=== PATIENT | female | born 1945 | race Caucasian/White ===

== ENCOUNTER 2017-10-25 11:52 | Observation (INO) | payer MEDICARE, BC ==
[2017-10-25] MEDS ORDERED: Morphine 2 MG/ML Syringe IVPUSH ONE (12:23)
--- NOTE | 2017-10-25 12:28 | EDM.PDOC ---
ED HPI GENERAL MEDICAL PROBLEM - General Chief Complaint: General Stated Complaint: Fell: R shoulder, low back, R knee Time Seen by Provider: 10/25/17 12:15 Source of Information: Reports: Patient, EMS History Limitations: Reports: No Limitations - History of Present Illness INITIAL COMMENTS - FREE TEXT/NARRATIVE: Patient is s/p right TKR 10/23/17 @ [facility], discharged yesterday to home, lives alone. Fell off shower stool (stool gave way), was unable to get self up. Complains of right scapula/back pain, lower back pain and right knee pain (no worse than after surgery). Denies LOC, patient did strike her head though and complains of headache. No chest pain, shortness of breath or abdominal pain. Onset: Today Duration: Hour(s): (1) Location: Reports: Head, Back Quality: Reports: Ache Severity: Moderate - Related Data Allergies Allergy/AdvReac Type Severity Reaction Status Date / Time amoxicillin Allergy Anaphylactic Verified 10/25/17 12:16 Shock Home Meds: Home Meds Aspirin 81 mg PO ASDIRECTED 10/25/17 [History] Biotin 5,000 mcg PO ASDIRECTED 10/25/17 [History] Celecoxib 200 mg PO BID 10/25/17 [History] ClonazePAM [KlonoPIN] 0.5 mg PO BEDTIME 10/25/17 [History] Ferrous Gluconate 324 mg PO ASDIRECTED 10/25/17 [History] Folic Acid 1 mg PO DAILY 10/25/17 [History] Gabapentin [Neurontin] 300 mg PO DAILY 10/25/17 [History] Hydroxychloroquine [Plaquenil] 200 mg PO BID 10/25/17 [History] Methotrexate 7.5 mg PO Q7D 10/25/17 [History] Tamoxifen [Nolvadex] 20 mg PO DAILY 10/25/17 [History] Trimethoprim 100 mg PO DAILY 10/25/17 [History] Venlafaxine HCl [Venlafaxine ER] 75 mg PO DAILY 10/25/17 [History] Venlafaxine HCl [Venlafaxine ER] 150 mg PO DAILY 10/25/17 [History] Zonisamide [Zonegran] 100 mg PO BID 10/25/17 [History] Past Medical History Cardiovascular History: Reports: Other (See Below) (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) Musculoskeletal History: Reports: Arthritis, Back Pain, Chronic Neurological History: Reports: Neuropathy, Peripheral Psychiatric History: Reports: Anxiety, Depression - Past Surgical History Musculoskeletal Surgical History: Reports: Knee Replacement (right 10/23/17), Other (See Below) (back surgery) Social & Family History - Tobacco Use Smoking Status *Q: Former Smoker Tobacco Use Within Last Twelve Months: No - Alcohol Use Alcohol Use in Last Twelve Months: No ED ROS GENERAL - Review of Systems Review Of Systems: See Below Constitutional: Reports: No Symptoms HEENT: Reports: No Symptoms Respiratory: Reports: No Symptoms Cardiovascular: Reports: No Symptoms Endocrine: Reports: No Symptoms GI/Abdominal: Reports: No Symptoms : Reports: No Symptoms Musculoskeletal: Reports: Back Pain, Other (right knee pain) Skin: Reports: No Symptoms Neurological: Reports: Headache Psychiatric: Reports: No Symptoms Hematologic/Lymphatic: Reports: No Symptoms Immunologic: Reports: No Symptoms ED EXAM, GENERAL - Physical Exam Exam: See Below Exam Limited By: No Limitations General Appearance: Alert, WD/WN, No Apparent Distress Eye Exam: Bilateral Eye: PERRL Nose: Normal Inspection Throat/Mouth: No Airway Compromise Head: Atraumatic, Normocephalic Neck: Normal Inspection, Non-Tender, Other (+distracting injury) Respiratory/Chest: No Respiratory Distress, Lungs Clear, Normal Breath Sounds Cardiovascular: Normal Peripheral Pulses, Regular Rate, Rhythm, Systolic Murmur (2/6) GI/Abdominal: Soft, Non-Tender, No Distention Back Exam: Other (mild lumbar spinous tenderness; mild right midback tenderness) Extremities: Other (mild tenderness, moderate swelling and ecchymosis to right knee) Neurological: Alert, Oriented, Normal Cognition, No Motor/Sensory Deficits Psychiatric: Normal Affect, Normal Mood Skin Exam: Intact EKG INTERPRETATION EKG Date: 10/25/17 Time: 12:35 Rhythm: NSR Rate (Beats/Min): 95 EKG Interpretation Comments: No acute ischemia, no ectopy Course - Vital Signs Text/Narrative:: Pain has improved after Morphine. Dr. Cherry agrees to admit patient for observation Last Recorded V/S: Last Vital Signs Temp 36.9 C 10/25/17 11:55 Pulse 94 10/25/17 11:55 Resp 16 10/25/17 11:55 BP 153/73 H 10/25/17 11:55 Pulse Ox 99 10/25/17 11:55 - Orders/Labs/Meds Orders: Active Orders 24 hr Category Date Time Status Cervical Spine wo Cont [CT] Stat Exams 10/25/17 12:21 Taken Chest wo Cont [CT] Stat Exams 10/25/17 12:24 Taken Head wo Cont [CT] Stat Exams 10/25/17 12:21 Taken Lumbar Spine wo Cont [CT] Stat Exams 10/25/17 12:21 Taken UA W/MICROSCOPIC [URIN] Stat Lab 10/25/17 12:20 Ordered Sodium Chloride 0.9% [Normal Saline] 1,000 ml Med 10/25/17 12:30 Active IV ASDIRECTED EKG 12 Lead [EK] Routine Ther 10/25/17 12:20 Ordered Medication Orders Sodium Chloride (Normal Saline) 1,000 mls @ 100 mls/hr IV ASDIRECTED MELIA Last Admin: 10/25/17 13:45 Dose: 100 mls/hr Labs: Laboratory Tests 10/25/17 10/25/17 Range/Units 12:30 12:30 WBC 9.8 (4.5-12.0) X10-3/uL RBC 3.32 (3.23-5.20) x10(6)uL Hgb 10.7 L (11.5-15.5) g/dL Hct 31.9 (30.0-51.3) % MCV 96.0 (80-96) fL MCH 32.2 (27.7-33.6) pg MCHC 33.6 (32.2-35.4) g/dL RDW 14.2 (11.5-15.5) % Plt Count 179 (125-369) X10(3)uL MPV 8.1 (7.4-10.4) fL Add Manual Diff Yes Neutrophils % (Manual) 83 H (46-82) % Lymphocytes % (Manual) 8 L (13-37) % Monocytes % (Manual) 9 (4-12) % Sodium 136 (135-145) mmol/L Potassium 4.1 (3.5-5.3) mmol/L Chloride 103 (100-110) mmol/L Carbon Dioxide 25 (21-32) mmol/L BUN 15 (7-18) mg/dL Creatinine 1.0 (0.55-1.02) mg/dL Est Cr Clr Drug Dosing TNP Estimated GFR (MDRD) 54 L (>60) BUN/Creatinine Ratio 15.0 (9-20) Glucose 113 (80-116) mg/dL Calcium 8.7 (8.6-10.2) mg/dL Meds: Medications Generic Name Dose Route Start Last Admin Trade Name Karely PRN Reason Stop Dose Admin Sodium Chloride 1,000 mls @ 100 mls/hr 10/25/17 12:30 10/25/17 13:45 Normal Saline IV 100 mls/hr ASDIRECTED MELIA Administration Discontinued Medications Generic Name Dose Route Start Last Admin Trade Name Karely PRN Reason Stop Dose Admin Morphine Sulfate 2 mg 10/25/17 13:45 10/25/17 13:43 Morphine IVPUSH 10/25/17 13:46 2 mg ONETIME ONE Administration - Radiology Interpretation Free Text/Narrative:: CT Head: NAD CT C-spine: NAD CT Chest: NAD CT L-spine: NAD Departure - Departure Time of Disposition: 14:24 Disposition: Refer to Observation Condition: Fair Clinical Impression: Back contusion - Discharge Information Referrals: Ramon Enriquez MD [Primary Care Provider] - Forms: ED Department Discharge - My Orders Last 24 Hours: My Active Orders 10/25/17 12:20 UA W/MICROSCOPIC [URIN] Stat EKG 12 Lead [EK] Routine 10/25/17 12:21 Cervical Spine wo Cont [CT] Stat Head wo Cont [CT] Stat Lumbar Spine wo Cont [CT] Stat 10/25/17 12:24 Chest wo Cont [CT] Stat 10/25/17 12:30 Sodium Chloride 0.9% [Normal Saline] 1,000 ml IV ASDIRECTED - Assessment/Plan Last 24 Hours: My Active Orders 10/25/17 12:20 UA W/MICROSCOPIC [URIN] Stat EKG 12 Lead [EK] Routine 10/25/17 12:21 Cervical Spine wo Cont [CT] Stat Head wo Cont [CT] Stat Lumbar Spine wo Cont [CT] Stat 10/25/17 12:24 Chest wo Cont [CT] Stat 10/25/17 12:30 Sodium Chloride 0.9% [Normal Saline] 1,000 ml IV ASDIRECTED
[2017-10-25] MEDS ORDERED: Sodium Chloride 0.9% 1,000 ML IV SCH (12:30)
[2017-10-25] MEDS ORDERED: Morphine 10 MG/ML Syringe IVPUSH ONE (13:45)
--- NOTE | 2017-10-25 14:46 | CT ---
INDICATION: Trauma, fell, hit back of head, no loss of consciousness. CT HEAD WITHOUT CONTRAST: Serial contiguous 2.5 and 5 mm sections were obtained through the brain without contrast 10/25/2017 - no comparisons. Total exam DLP = 950.31 mGy-cm. Calcifications are noted in the vertebral arteries and the internal carotid arteries. There is some thickening of the lining of the right sphenoidal air cell. Paranasal sinuses were otherwise unremarkable. The mastoid air cells also appeared to be well-aerated. No cranial abnormality was identified - no cranial fracture site was seen. There is suggestion of a small right posterior occipital scalp hematoma - correlate clinically. No other soft tissue swelling was suggested. No underlying fracture site was identified. No shift of midline structures was seen. The ventricles are somewhat prominent , compatible with a mild degree of central atrophy. No bleeding site or hematoma was identified. No definite abnormal areas of density were identified. Orbits were unremarkable. IMPRESSION: 1. No definite acute intracranial abnormality. 2. Cerebrovascular disease. 3. Central atrophy. 4. Thickening of the lining of the right sphenoidal air cell of questionable significance. 5. Suggestion of a small scalp hematoma right posterior occipital area. Report was called to Dr. Greenberg on 10/25/2017 at 1407 hours. [facility]
--- NOTE | 2017-10-25 14:57 | CT ---
INDICATION: Fall, right rib and scapular pain. CT CHEST WITHOUT CONTRAST: Spiral 2.5 mm axial sections were obtained through the chest without contrast 10/25/2017 and were compared with 06/16/2014. Sagittal and coronal reconstructions were obtained. Total exam DLP = 588.83 mGy-cm. There are some minimal fibrotic changes again noted at the right middle lobe and right lower lobe with no active infiltrate, effusion, contusion, or pneumothorax suggested. No definite mediastinal mass is identified. Mediastinal lymphadenopathy is noted of mild degree, which is nonspecific, mostly at the aortopulmonary window. Calcifications are noted at the coronary arteries and in the aorta, seen previously. A tiny fixed hiatal hernia is suggested. A total shoulder arthroplasty is noted on the right. Degenerative changes are noted at the AC joint. A definite rib fracture or scapular fracture was not identified. Two fusions with plates and screws are noted in the cervical spine. Hypertrophic degenerative changes are noted in the mid to lower thoracic spine with degenerative disk disease at several mid to lower thoracic levels. A definite acute fracture site was not identified. The hypertrophic changes appear to be stable, compared with 2014. There are not bridging disk spaces anteriorly. Degenerative disk disease may be slightly progressive, compared with the previous study. No definite acute thoracic spine fracture is identified. Degenerative changes are noted at the glenohumeral joint and AC joint on the left. No acute change is noted, compared with CT of the chest from 06/16/2014. IMPRESSION: 1. No finding to suggest an acute intrathoracic or thoracic abnormality. 2. Mild pulmonary fibrosis, mostly on the right. 3. ASD. 4. Postsurgical changes cervical spine with fusions times two. 5. Degenerative changes and disk disease thoracic spine - no acute fractures identified. 6. No definite rib fractures or scapular fractures identified. Report was called to Dr. Greenberg on 10/25/2017 at 1407 hours. [facility]
[2017-10-25] MEDS ORDERED: Morphine 10 MG/ML Syringe IVPUSH PRN (14:58)
--- NOTE | 2017-10-25 15:03 | CT ---
INDICATION: Fell posteriorly. CT CERVICAL SPINE: Spiral 2.5 mm axial sections were obtained through the cervical spine with sagittal and coronal reconstructions, 10/25/2017. No comparisons were available. Total exam DLP = 528.95 mGy-cm. There are two fusions noted in the cervical spine with plates anteriorly and multiple screws. The cranial fusion is at C3-4-5 with 6 screws and appears intact. Disk spacers are noted in place. The second fusion is at C7-T1 with [address], and at both of these fusions, the plates and screws appear to be intact, as are the fusions. Decreased disk space is seen at the C4-5, C5-6 levels with hypertrophic spurring at those levels. A definite fracture or dislocation was not identified of an acute nature. Hypertrophic spurring does cause narrowing of the cervical canal at the C4-5 level especially. Prevertebral space appeared normal. Degenerative changes are noted at the atlantoodontoid joint with the atlas and axis appearing intact - odontoid appeared intact. IMPRESSION: Degenerative changes, disk disease, and two fusions are noted without evidence of an acute fracture or dislocation identified. Report was called to Dr. Greenberg on 10/25/2017 at 1407 hours. [facility]
--- NOTE | 2017-10-25 15:14 | CT ---
INDICATION: Fell posteriorly. CT LUMBOSACRAL SPINE: Spiral 2.5 mm axial sections were obtained through the lumbosacral spine with sagittal and coronal reconstructions, 10/25/2017 - no comparisons. Total exam DLP = 1,054.68 mGy-cm. Fusion is noted with intact rods and pedicle screws at the L4-5 level. The fusion is intact in appearance. Degenerative disk disease is noted at all levels of the lumbar spine and also at the T12-L1 level with vacuum disk phenomenon at T12 through the L3-4 disk space. There is a mild retrolisthesis at L3-4. It likely is degenerative in nature. Vertebral body heights appear to be fairly well-maintained without a definite acute fracture site or dislocation identified. What appears to be a hemangioma is seen at the L1 vertebral body. This extends into the pedicle on the right and is on the right half of the vertebral body extending across the midline in the vertebral body also. A moderate dextroconcave scoliosis of the upper middle lumbar spine is noted. Moderate degenerative changes are noted at the sacroiliac joints bilaterally, slightly more prominently on the right than left with vacuum joint phenomenon at the sacroiliac joints. Compared with the lumbar spine seen on abdomen CT of 06/16/2014, there is some progression of hypertrophic degenerative changes anteriorly, especially notable at T12-L1. As previously, degenerative changes and disk disease are noted with no acute change suggested. Scoliosis appears similar to the previous examination. Hemangioma at L1 is stable, compared with previous examination. IMPRESSION: Multiple findings as noted above; however, no acute change is noted , compared with 2015 - no acute fracture or dislocation was suggested. L4-5 fusion appears stable. Report was called to Dr. Greenberg on 10/25/2017 at 1407 hours. [facility]ITAL[facility]enn[facility]
[2017-10-25] MEDS: Acetaminophen/HYDROcodone 325-5 MG Tab PO PRN ×2 (15:43→20:18)
--- NOTE | 2017-10-25 20:30 | PCM.HP ---
H&P History of Present Illness - General Date of Service: 10/25/17 Admit Problem/Dx: Admission Diagnosis/Problem Admission Diagnosis/Problem Contusion of back Source of Information: Patient, Old Records History Limitations: Reports: No Limitations - History of Present Illness Initial Comments - Free Text/Narative: 72 yo female who presented with a fall. Was on a stool that slipped,she fell and landed on the buttocks. She was unable to ambulate independently,because of a recent TKA on the right.She had R TKA on Sunday and was discharged home after 1 day. She has rt buttock pain,with no radiation. No fever,chills or sob. She has a h/o HTN,PMR,EUGENIE Lumbar spinal stenosis s/p fusion. Onset of Symptoms: Reports: Today Quality: Reports: Ache Severity: Moderate Right Knee Pain Score (Numeric/FACES): 6 - Related Data Allergies/Adverse Reactions: Allergies Allergy/AdvReac Type Severity Reaction Status Date / Time amoxicillin Allergy Anaphylactic Verified 10/25/17 12:16 Shock Home Medications: Home Meds Aspirin 81 mg PO DAILY 10/25/17 [History] Biotin 5,000 mcg PO DAILY 10/25/17 [History] Celecoxib 200 mg PO BID 10/25/17 [History] ClonazePAM [KlonoPIN] 0.5 mg PO BEDTIME 10/25/17 [History] Ferrous Gluconate 324 mg PO DAILY 10/25/17 [History] Folic Acid 2 mg PO DAILY 10/25/17 [History] Gabapentin [Neurontin] 300 mg PO BID 10/25/17 [History] Hydroxychloroquine [Plaquenil] 200 mg PO BID 10/25/17 [History] Methotrexate 7.5 mg PO Q7D 10/25/17 [History] Tamoxifen [Nolvadex] 20 mg PO BEDTIME 10/25/17 [History] Trimethoprim 100 mg PO DAILY 10/25/17 [History] Venlafaxine HCl [Venlafaxine ER] 75 mg PO DAILY 10/25/17 [History] Venlafaxine HCl [Venlafaxine ER] 150 mg PO DAILY 10/25/17 [History] Zonisamide [Zonegran] 100 mg PO BID 10/25/17 [History] Past Medical History Cardiovascular History: Reports: Other (See Below) Musculoskeletal History: Reports: Arthritis, Back Pain, Chronic Neurological History: Reports: Neuropathy, Peripheral Psychiatric History: Reports: Anxiety, Depression Oncologic (Cancer) History: Reports: Breast Other Oncologic History: lumph removal 3 years ago with radiation following - Past Surgical History Neurological Surgical History: Reports: Spinal Fusion Musculoskeletal Surgical History: Reports: Knee Replacement, Other (See Below) Oncologic Surgical History: Reports: Biopsy of Breast Social & Family History - Family History Family Medical History: Noncontributory - Tobacco Use Smoking Status *Q: Never Smoker Years of Tobacco use: 15 Used Tobacco, but Quit: No Second Hand Smoke Exposure: No - Caffeine Use Caffeine Use: Reports: Other Other Caffeine Use: 10 cans of diet pop/daily - Recreational Drug Use Recreational Drug Use: No H&P Review of Systems - Review of Systems: Review Of Systems: ROS reveals no pertinent complaints other than HPI. Exam - Exam Exam: See Below - Vital Signs Vital Signs: Last Vital Signs Temp 98.4 F 10/25/17 11:55 Pulse 97 10/25/17 15:05 Resp 16 10/25/17 15:05 BP 146/69 H 10/25/17 15:05 Pulse Ox 97 10/25/17 15:05 Weight: 93.185 kg - Exam General: Alert, Oriented, 4 HEENT: PERRLA, Hearing Intact, Mucosa Moist & Powderly, Nares Patent, Normal Nasal Septum, Posterior Pharynx Clear, Conjunctiva Clear, EOMI, EACs Clear, TMs Clear Neck: Supple, Trachea Midline, 2 Lungs: Clear to Auscultation, Normal Respiratory Effort Cardiovascular: Regular Rate, Regular Rhythm GI/Abdominal Exam: Normal Bowel Sounds, Soft, Non-Tender, No Organomegaly, No Distention, No Abnormal Bruit, No Mass, Pelvis Stable (Female) Exam: Deferred Rectal (Female) Exam: Deferred Back Exam: Normal Inspection, Full Range of Motion, NT Extremities: Joint Swelling, Redness Skin: Warm, Dry, Intact Neurological: Cranial Nerves Intact, Reflexes Equal Bilateral Neuro Extensive - Mental Status: Alert, Oriented x3, Normal Mood/Affect, Normal Cognition Neuro Extensive - Motor, Sensory, Reflexes: CN II-XII Intact, Normal Gait, Normal Reflexes Psychiatric: Alert, Normal Affect, Normal Mood - Patient Data Lab Results Last 24 hrs: Laboratory Results - last 24 hr 10/25/17 10/25/17 10/25/17 Range/Units 12:30 12:30 17:30 WBC 9.8 (4.5-12.0) X10-3/uL RBC 3.32 (3.23-5.20) x10(6)uL Hgb 10.7 L (11.5-15.5) g/dL Hct 31.9 (30.0-51.3) % MCV 96.0 (80-96) fL MCH 32.2 (27.7-33.6) pg MCHC 33.6 (32.2-35.4) g/dL RDW 14.2 (11.5-15.5) % Plt Count 179 (125-369) X10(3)uL MPV 8.1 (7.4-10.4) fL Add Manual Diff Yes Neutrophils % (Manual) 83 H (46-82) % Lymphocytes % (Manual) 8 L (13-37) % Monocytes % (Manual) 9 (4-12) % Sodium 136 (135-145) mmol/L Potassium 4.1 (3.5-5.3) mmol/L Chloride 103 (100-110) mmol/L Carbon Dioxide 25 (21-32) mmol/L BUN 15 (7-18) mg/dL Creatinine 1.0 (0.55-1.02) mg/dL Est Cr Clr Drug Dosing TNP Estimated GFR (MDRD) 54 L (>60) BUN/Creatinine Ratio 15.0 (9-20) Glucose 113 (80-116) mg/dL Calcium 8.7 (8.6-10.2) mg/dL Urine Color Yellow (YELLOW) Urine Appearance Clear (CLEAR) Urine pH 8.0 H (5.0-6.5) Ur Specific [place] 1.010 (1.010-1.025) Urine Protein Negative (NEGATIVE) mg/dL Urine Glucose (UA) Normal (NEGATIVE) mg/dL Urine Ketones 15 H (NEGATIVE) mg/dL Urine Occult Blood Moderate H (NEGATIVE) Urine Nitrite Negative (NEGATIVE) Urine Bilirubin Negative (NEGATIVE) Urine Urobilinogen Normal (NEGATIVE) mg/dL Ur Leukocyte Esterase Negative (NEGATIVE) Urine RBC 10-20 H (0) Urine WBC 0-5 (0) Ur Squamous Epith Cells Few H (NS,R,O) Urine Bacteria Few H (NS) Result Diagrams: 10/25/17 12:30 10/25/17 12:30 - Problem List (1) Fall SNOMED Code(s): 8132650, 406081331 ICD Code: W19.XXXA - UNSPECIFIED FALL, INITIAL ENCOUNTER Status: Acute Current Visit: Yes Qualifiers: Encounter type: initial encounter Qualified Code(s): W19.XXXA - Unspecified fall, initial encounter (2) S/P knee replacement SNOMED Code(s): 143542990 ICD Code: Z96.659 - PRESENCE OF UNSPECIFIED ARTIFICIAL KNEE JOINT Status: Acute Current Visit: Yes Qualifiers: Laterality: right Qualified Code(s): Z96.651 - Presence of right artificial knee joint (3) Back contusion SNOMED Code(s): 26380751 ICD Code: S20.229A - CONTUSION OF UNSPECIFIED BACK WALL OF THORAX, INIT ENCNTR Status: Acute Current Visit: Yes Qualifiers: Encounter type: initial encounter (4) Lumbar spinal stenosis SNOMED Code(s): 95596292 ICD Code: M48.061 - SPINAL STENOSIS, LUMBAR REGION WITHOUT NEUROGENIC WENDY Status: Acute Current Visit: Yes Qualifiers: Neurogenic claudication status: without neurogenic claudication Qualified Code(s): M48.061 - Spinal stenosis, lumbar region without neurogenic claudication (5) HTN (hypertension) SNOMED Code(s): 76496368 ICD Code: I10 - ESSENTIAL (PRIMARY) HYPERTENSION Status: Chronic Current Visit: Yes Qualifiers: Hypertension type: essential hypertension Qualified Code(s): I10 - Essential (primary) hypertension (6) EUGENIE (generalized anxiety disorder) SNOMED Code(s): 34418924 ICD Code: F41.1 - GENERALIZED ANXIETY DISORDER Status: Chronic Current Visit: Yes (7) PMR (polymyalgia rheumatica) SNOMED Code(s): 62712272 ICD Code: M35.3 - POLYMYALGIA RHEUMATICA Status: Chronic Current Visit: Yes Problem List Initiated/Reviewed/Updated: Yes Orders Last 24hrs: Active Orders 24 hr Category Date Time Status Patient Status [ADT] Routine ADT 10/25/17 14:33 Active Oxygen Therapy [RC] PRN Care 10/25/17 14:55 Active Up With Assistance [RC] 09,13,17,21 Care 10/25/17 14:49 Active Vital Signs [RC] 08,16,00 Care 10/25/17 14:55 Active OT Evaluation and Treatment [CONS] Routine Cons 10/25/17 14:49 Active PT Evaluation and Treatment [CONS] Routine Cons 10/25/17 14:49 Active Regular Diet [DIET] Diet 10/25/17 Dinner Active UA W/MICROSCOPIC [URIN] Stat Lab 10/25/17 17:30 Ordered Acetaminophen/HYDROcodone [Braymer 325-5 MG] Med 10/25/17 15:31 Active 1 tab PO Q4H PRN Celecoxib [CeleBREX] Med 10/25/17 21:00 Active 200 mg PO BID ClonazePAM [KlonoPIN] Med 10/25/17 21:00 Active 0.5 mg PO BEDTIME Ferrous Gluconate [Ferrous Gluconate] Med 10/26/17 09:00 Active 324 mg PO DAILY Folic Acid Med 10/26/17 09:00 Active 2 mg PO DAILY Gabapentin [Neurontin] Med 10/25/17 21:00 Active 300 mg PO BID Tamoxifen [Nolvadex] Med 10/25/17 21:00 Active 20 mg PO BEDTIME Trimethoprim Med 10/26/17 09:00 Active 100 mg PO DAILY Venlafaxine [Effexor XR] Med 10/26/17 09:00 Active 150 mg PO DAILY Venlafaxine [Effexor XR] Med 10/26/17 09:00 Active 75 mg PO DAILY Zonisamide [Zonegran] Med 10/25/17 21:00 Active 100 mg PO BID Convert IV to Saline Lock [OM.PC] Routine Oth 10/25/17 20:14 Ordered Resuscitation Status Routine Resus Stat 10/25/17 14:49 Ordered EKG 12 Lead [EK] Routine Ther 10/25/17 12:20 Ordered Medication Orders Hydrocodone Bitart/Acetaminophen (Braymer 325-5 Mg) 1 tab PO Q4H PRN PRN Reason: Pain (moderate 4-6) Last Admin: 10/25/17 20:18 Dose: 1 tab Admin: 10/25/17 15:43 Dose: 1 tab Celecoxib (Celebrex) 200 mg PO BID MELIA Clonazepam (Klonopin) 0.5 mg PO BEDTIME MELIA Folic Acid (Folic Acid) 2 mg PO DAILY MELIA Gabapentin (Neurontin) 300 mg PO BID MELIA Non-Formulary Medication (Ferrous Gluconate [Ferrous Gluconate]) 324 mg PO DAILY MELIA Non-Formulary Medication (Tamoxifen [Nolvadex]) 20 mg PO BEDTIME MELIA Non-Formulary Medication (Zonisamide [Zonegran]) 100 mg PO BID MELIA Trimethoprim (Trimethoprim) 100 mg PO DAILY MELIA Venlafaxine HCl (Effexor Xr) 75 mg PO DAILY MELIA Venlafaxine HCl (Effexor Xr) 150 mg PO DAILY MELIA Assessment/Plan Comment:: Admit for PT evaluation. Pain control.Continue Home meds,including anticoagulation according to AAO guidelines-she is on Eliquis.
[2017-10-25] MEDS: CELECOXIB 200 MG PO SCH (20:32)
[2017-10-25] MEDS: Gabapentin 300 MG Cap*PTOM PO SCH (20:32)
[2017-10-25] MEDS: ZONISAMIDE 100 MG PO SCH (20:33)
[2017-10-25] MEDS: TAMOXIFEN 20 MG PO SCH (20:33)
[2017-10-25] MEDS: ClonazePAM 0.5 MG Tab PO SCH (20:37)
[2017-10-26] MEDS: Acetaminophen/HYDROcodone 325-5 MG Tab PO PRN ×3 (02:45→20:56)
[2017-10-26] MEDS: VENLAFAXINE 75 MG PO SCH (08:40)
[2017-10-26] MEDS: Non-Formulary Medication 1 Each (Ferrous Gluconate [Ferrous Gluconate] 324 MG) PO SCH (08:40)
[2017-10-26] MEDS: VENLAFAXINE 150 MG PO SCH (08:40)
[2017-10-26] MEDS: CELECOXIB 200 MG PO SCH ×2 (08:40→20:52)
[2017-10-26] MEDS: TRIMETHOPRIM 100 MG PO SCH (08:41)
[2017-10-26] MEDS: FOLIC ACID 1 MG PO SCH (08:41)
[2017-10-26] MEDS: ZONISAMIDE 100 MG PO SCH ×2 (08:41→20:56)
[2017-10-26] MEDS: Gabapentin 300 MG Cap*PTOM PO SCH ×2 (08:41→20:55)
--- NOTE | 2017-10-26 13:25 | PN ---
DATE SEEN: 10/26/2017 SUBJECTIVE: Gianna Beckham is a delightful 72-year-old female, admitted with a fall at home. Unable to attend, transferred by ambulance and acute care intervention. Doing well this morning. Pain is controlled. Has not been ambulating. Discussed implications, concerns. OBJECTIVE: CHEST: Clear. HEART: Grade 3/6 systolic ejection murmur. Regular rate. ABDOMEN: Benign. EXTREMITIES: Surgical wound, right leg without conflict. ASSESSMENT: Recurrent falls, recent total knee arthroplasty. PLAN: PT, close observation, walk-in intervention, hopefully stay until tomorrow. /[id number] YUDI/MICHAEL
[2017-10-26] MEDS: APIXABAN 2.5 MG PO SCH ×2 (15:11→20:53)
[2017-10-26] MEDS: ClonazePAM 0.5 MG Tab PO SCH (20:54)
[2017-10-26] MEDS: TAMOXIFEN 20 MG PO SCH (20:55)
[2017-10-27] MEDS: Acetaminophen/HYDROcodone 325-5 MG Tab PO PRN (07:26)
[2017-10-27] MEDS: ZONISAMIDE 100 MG PO SCH (08:28)
[2017-10-27] MEDS: FOLIC ACID 1 MG PO SCH (08:28)
[2017-10-27] MEDS: VENLAFAXINE 75 MG PO SCH (08:28)
[2017-10-27] MEDS: APIXABAN 2.5 MG PO SCH (08:28)
[2017-10-27] MEDS: CELECOXIB 200 MG PO SCH (08:28)
[2017-10-27] MEDS: Non-Formulary Medication 1 Each (Ferrous Gluconate [Ferrous Gluconate] 324 MG) PO SCH (08:28)
[2017-10-27] MEDS: VENLAFAXINE 150 MG PO SCH (08:28)
[2017-10-27] MEDS: TRIMETHOPRIM 100 MG PO SCH (08:28)
[2017-10-27] MEDS: Gabapentin 300 MG Cap*PTOM PO SCH (08:28)
--- NOTE | 2017-10-29 10:10 | HP ---
ADMISSION DATE: 10/25/2017 REASON FOR ADMISSION: Fall at home. HISTORY OF PRESENT ILLNESS: Gianna Beckham is a 72-year-old female, admitted yesterday through the ER by Dr. Greenberg. She underwent right total knee arthroplasty at [facility] on 10/23/2017, discharge the 2nd day. Living situation is of concern. Older sister 10 years old has been cohabiting with her, but acute care and intervention not available. Episode early yesterday morning, could not get off the toilet, son had come over, was attempting to find a way to the bathroom, took a fall and injured her right back and scapula, low back and injured her right knee without consciousness. Did strike head, but no particular complaints. While in the ER, diagnostic studies were performed. CT head no acute process, cervical spine, and lumbar CT-spine reveal degenerative changes in previous fusions, but no new changes, CT lumbar spine revealed multiple postsurgical changes and fusion, but no new issues. She was admitted for observation intervention. MEDICATIONS: Daily meds: Please see med recon list. ALLERGIES: Allergic to amoxicillin "anaphylactic shock." PAST MEDICAL HISTORY: Significant for 7 spine surgeries both cervical, thoracic, and lumbar spine. Had a previous left total knee arthroplasty remote, and recent right total knee arthroplasty. She has had a cholecystectomy appendectomy, previous right breast surgery for lumpectomy. Chronic illnesses: Treated include osteoporosis treatment, Plaquenil for rheumatoid arthritis, methotrexate for rheumatoid arthritis, analgesics, folic acid, gabapentin for chronic pain and mood stabilizers. SOCIAL HISTORY: , at age 68 of heart disease. Three children, 2 sons, 1 daughter, 7 grandchildren, 15 great grandchildren. Nonsmoker. No alcohol consumption. 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 FAMILY HISTORY: Noncontributory. REVIEW OF SYSTEMS: CONSTITUTIONAL: Feeling pretty well. Aches and pains. EYES: Sees well. EARS: Hears well. OROPHARYNX: Intact dentition. RESPIRATORY: No cough, wheeze, or congestion. CARDIOVASCULAR: Denies chest pain, palpitations, or syncope. GI: Regular predictable stools, no blood in stools. Voiding without difficulty. Mild stress incontinence. ORTHOPEDICS: Right knee pain postsurgical. NEUROLOGIC: Denies headache, blurred vision, weakness or tremors. ENDOCRINE: No excessive thirst or urination. PHYSICAL EXAMINATION: VITAL SIGNS: Stable. GENERAL: Cooperative, conversant, gives a good history. HEENT: Funduscopic benign. Bright TMs. Clear nasal discharge. Mouth and oropharynx clear. Tongue midline. Good gag reflex. NECK: Surgical scars. Some palpable crepitation. CHEST: Clear in all lung ernst. No adventitious sounds. HEART: Grade 2/6systolic ejection murmur, aortic area. ABDOMEN: Benign, multiple surgical scars, well healed. No hepatosplenomegaly. : Deferred. RECTAL: Deferred. EXTREMITIES: Total knee arthroplasty, surgically healed wound without difficulty. Left leg, changes and surgical wound left knee without complicating issue, ecchymoses appropriate, good peripheral pulses. LABORATORY STUDIES: Hemoglobin 10.7, white count 9800, normal differential. Electrolytes satisfactory. Urinalysis moderate blood, 10-20 red cells to be evaluated. ASSESSMENT: Fall recurrent, home situation complicated, postoperative 3 days total knee arthroplasty. PLAN: Swing bed on board, PT on board, complementary care and well being, analgesics as appropriate. Proceed accordingly. Expect a short-term stay hopefully until tomorrow. PT and intervention fall precautions and strengthening. /[id number] YUDI/MICHAEL
--- NOTE | 2017-10-29 10:18 | DISCH ---
DISCHARGE DATE: 10/27/2017 SUBJECTIVE: Gianna Beckham is a 72-year-old female, who was admitted yesterday after a fall. She fell, landed on her buttocks. Unable to ambulate independently. 84-year-old sister only caregiver. Only a few days postop right total knee arthroplasty. PT is actively involved. OT involved, made good progress since yesterday. Ambulating with walker. Pain is controlled. Analgesics on board and icing often. LABORATORY DATA: None indicated. OBJECTIVE: VITAL SIGNS: 36.6, 93/62, 18, and 95% on room air. GENERAL: As always, in good spirits. NECK: Benign. Thyroid small. CHEST: Clear in all lung ernst. HEART: . ABDOMEN: Benign. Surgical wound, right knee, without conflict, normal ecchymoses. ASSESSMENT: Fall at home, support services limited this time, doing well with ambulation. PLAN: Walker to walk. Multiple family members exist in the area, many, many, many. She cannot be alone with her 84-year-old sister over the next week's time, someone must be with her, with ability to care for her in terms of those immediate needs with transfer, ambulation, and bathroom privileges. Shared with them that this is a mandatory issue. Family is available and they will "put her foot down." Upcoming appointment with Dr. Vann and staff as required. Analgesics are available at home as her home medications. /[id number] /MICHAEL
== END 2017-10-27 15:10 | disposition home or self-care (01) ==
LOC: FB.ED 11:52 → FB.MS 14:44
PROVIDERS: ADMIT Family Medicine; ATTEND Family Medicine
DX: S20.229A Contusion of unspecified back wall of thorax, initial encounter (principal); I10 Essential (primary) hypertension; F41.1 Generalized anxiety disorder; G62.9 Polyneuropathy, unspecified; F32.9 Major depressive disorder, single episode, unspecified; M48.061 Spinal stenosis, lumbar region without neurogenic claudication; M35.3 Polymyalgia rheumatica; M81.0 Age-related osteoporosis without current pathological fracture; M06.9 Rheumatoid arthritis, unspecified; W01.0XXA Fall on same level from slipping, tripping and stumbling without subsequent striking against object, initial encounter; Z96.651 Presence of right artificial knee joint; Z88.1 Allergy status to other antibiotic agents; Z79.82 Long term (current) use of aspirin; Z79.899 Other long term (current) drug therapy; Z90.49 Acquired absence of other specified parts of digestive tract
CPT/HCPCS: 36415; 70450; 71250; 72125; 72131; 80048; 81001; 85025; 93005; 96361; 96374; 97161; 97530; 99284; A9270; G0378; J2270; J7040

== ENCOUNTER 2022-02-23 18:50 | Inpatient (IN) | payer MEDICARE, BC ==
[2022-02-23] MEDS ORDERED: Sodium Chloride 0.9% 10 ML Syringe FLUSH PRN (19:15)
[2022-02-23] MEDS ORDERED: Sodium Chloride 0.9% 1,000 ML IV SCH (19:15)
[2022-02-23 19:40] LABS: ESTIMATED GFR 35 mL/min (>60)
[2022-02-23] MEDS ORDERED: Acetaminophen 325 MG Tab PO PRN (20:30)
[2022-02-23] MEDS ORDERED: REMDESIVIR 200 MG in Sodium Chloride 0.9% 250 ML IV ONE (20:30)
[2022-02-23] MEDS: Sodium Chloride 0.9% 1,000 ML IV SCH (22:24)
[2022-02-23] MEDS: Enoxaparin 40 MG/0.4 ML Syringe SUBCUT SCH (22:34)
[2022-02-24] MEDS: Sodium Chloride 0.9% 1,000 ML IV SCH ×2 (06:58→23:16)
[2022-02-24 07:22] LABS: ESTIMATED GFR 46 mL/min (>60)
[2022-02-24] MEDS ORDERED: Sulfamethoxazole/Trimethoprim 800-160 MG Tab PO SCH (09:00)
[2022-02-24] MEDS: cefTRIAXone 1 GM Vial IVPUSH SCH (10:20)
[2022-02-24] MEDS: Potassium Chloride 20 MEQ Tab.ER PO SCH ×3 (10:20→20:51)
[2022-02-24] MEDS ORDERED: Iopamidol 755 Mg/ML 75 ML Bottle IV ONE (12:05)
[2022-02-24] MEDS ORDERED: Acetaminophen/HYDROcodone 325-5 MG Tab PO PRN (14:32)
[2022-02-24] MEDS: Enoxaparin 40 MG/0.4 ML Syringe SUBCUT SCH (20:50)
[2022-02-24] MEDS: Folic Acid 1 MG Tab PO SCH (20:51)
[2022-02-24] MEDS: ClonazePAM 0.5 MG Tab PO SCH (20:51)
[2022-02-24] MEDS: Famotidine 10 MG Tab PO SCH (20:51)
[2022-02-24] MEDS: Gabapentin 300 MG Cap PO SCH (20:51)
[2022-02-24] MEDS ORDERED: Zonisamide 100 MG Cap PO ONE (20:53)
[2022-02-24] MEDS: Acetaminophen 325 MG Tab PO PRN (21:00)
[2022-02-25 06:59] LABS: ESTIMATED GFR 58 mL/min (>60)
[2022-02-25] MEDS: Gabapentin 300 MG Cap PO SCH ×2 (08:02→21:33)
[2022-02-25] MEDS ORDERED: Zonisamide 100 MG Cap PO ONE ×3 (08:02→21:34)
[2022-02-25] MEDS: Venlafaxine 150 MG Cap.ER PO SCH (08:03)
[2022-02-25] MEDS: cefTRIAXone 1 GM Vial IVPUSH SCH (08:03)
[2022-02-25] MEDS: predniSONE 1 MG Tab PO SCH (08:03)
[2022-02-25] MEDS: Zinc Sulfate 220 MG Cap PO SCH (08:03)
[2022-02-25] MEDS: Potassium Chloride 20 MEQ Tab.ER PO SCH ×2 (08:03→13:11)
[2022-02-25] MEDS: Acetaminophen 325 MG Tab PO PRN ×2 (13:11→21:32)
[2022-02-25] MEDS: ClonazePAM 0.5 MG Tab PO SCH (21:32)
[2022-02-25] MEDS: Famotidine 10 MG Tab PO SCH (21:35)
[2022-02-25] MEDS: Folic Acid 1 MG Tab PO SCH (21:35)
[2022-02-25] MEDS: Enoxaparin 40 MG/0.4 ML Syringe SUBCUT SCH (21:37)
[2022-02-26 06:56] LABS: ESTIMATED GFR 65 mL/min (>60)
[2022-02-26] MEDS: cefTRIAXone 1 GM Vial IVPUSH SCH (08:14)
[2022-02-26] MEDS: Zinc Sulfate 220 MG Cap PO SCH (08:15)
[2022-02-26] MEDS: Venlafaxine 150 MG Cap.ER PO SCH (08:16)
[2022-02-26] MEDS: Gabapentin 300 MG Cap PO SCH (08:16)
[2022-02-26] MEDS: predniSONE 1 MG Tab PO SCH (08:16)
[2022-02-26] MEDS ORDERED: Fluconazole 150 MG Tab PO ONE (08:49)
[2022-02-26] MEDS: Acetaminophen 325 MG Tab PO PRN (09:41)
== END 2022-02-26 10:50 | disposition home or self-care (01) | DRG 682 ==
LOC: FB.ED 18:50 → FB.MS 20:30
PROVIDERS: ADMIT Family Medicine; ATTEND Family Medicine
PROC: XW033E5 Introduction of Remdesivir Anti-infective into Peripheral Vein, Percutaneous Approach, New Technology Group 5 (ICD-10-PCS; principal; 2022-02-23)
PROC: 8E0ZXY6 Isolation (ICD-10-PCS; 2022-02-24)
DX: N17.9 Acute kidney failure, unspecified (principal); U07.1 COVID-19; N30.01 Acute cystitis with hematuria; B37.3 Candidiasis of vulva and vagina; R41.1 Anterograde amnesia; E87.6 Hypokalemia; M19.90 Unspecified osteoarthritis, unspecified site; R77.8 Other specified abnormalities of plasma proteins; M35.3 Polymyalgia rheumatica; Z88.1 Allergy status to other antibiotic agents; F41.1 Generalized anxiety disorder; I10 Essential (primary) hypertension; M54.9 Dorsalgia, unspecified; G89.29 Other chronic pain; F32.A Depression, unspecified; G62.9 Polyneuropathy, unspecified; Z96.653 Presence of artificial knee joint, bilateral; Z96.611 Presence of right artificial shoulder joint; E86.0 Dehydration; Z95.0 Presence of cardiac pacemaker; Z88.0 Allergy status to penicillin; Z79.82 Long term (current) use of aspirin; Z79.52 Long term (current) use of systemic steroids; Z79.899 Other long term (current) drug therapy; Z87.891 Personal history of nicotine dependence; Z85.828 Personal history of other malignant neoplasm of skin; Z90.49 Acquired absence of other specified parts of digestive tract; Z90.710 Acquired absence of both cervix and uterus; Z85.3 Personal history of malignant neoplasm of breast
CPT/HCPCS: 36415; 71045; 80053; 84484; 85025; 93005; J3490; J7030; U0002; 71275; 80048; 81001; 83880; 85379; 85610; 85730; 87086; 87088; 87186; 96360; 99285-25; A9270-GY; J0696; J1650; J7050; J7512; Q9967

== ENCOUNTER 2023-08-27 18:48 | Emergency (ER) | payer BC, MEDICARE ==
[2023-08-27] MEDS ORDERED: Sodium Chloride 0.9% 10 ML Syringe FLUSH PRN (19:07)
[2023-08-27] MEDS: Sodium Chloride 0.9% 500 ML IV ONE (19:10)
[2023-08-27 19:27] LABS: BASOPHILS PERCENT AUTO 0.6 % (0.2-1.5); EOSINOPHILS PERCENT AUTO 0.1 % (0.6-8.1); HEMATOCRIT 46.1 % (34.2-48.2); HEMOGLOBIN 15.2 g/dL (11.4-15.5); LYMPHOCYTES ABSOLUTE AUTO 1.3 x10-3/uL (1.0-4.4); LYMPHOCYTES PERCENT AUTO 18.7 % (18.4-52.1); MEAN CORPUSCULAR HEMOGLOBIN 33.8 pg (23.9-33.9); MEAN CORPUSCULAR VOLUME 102.4 fL (76.7-100.5); MEAN PLATELET VOLUME 8.8 fL (7.1-12.4); MONOCYTES ABSOLUTE AUTO 0.8 x10-3/uL (0.3-1.0); MONOCYTES PERCENT AUTO 11.1 % (4.4-15.7); NEUTROPHILS PERCENT AUTO 69.5 % (30.8-76.2); PLATELET COUNT,PLT 265 x10(3)uL (151-488); RED CELL DISTRIBUTION WIDTH 15.4 % (12.3-16.5); WHITE BLOOD CELL COUNT,WBC 7.2 x10-3/uL (3.0-10.3)
[2023-08-27 19:44] LABS: A/G RATIO 0.6; ALANINE AMINOTRANSFERASE,ALT 22 U/L (12-36); ALBUMIN 3.2 g/dL (3.2-4.6); ALKALINE PHOSPHATASE 52 IU/L (56-112); ASPARTATE AMNIOTRANSFERASE,AST 35 IU/L (5-25); BILIRUBIN TOTAL 0.4 mg/dL (0.1-1.3); BLOOD UREA NITROGEN,BUN 46 mg/dL (7-18); BUN/CREATININE RATIO 21.9 (9-20); CALCIUM 8.8 mg/dL (8.6-10.2); CARBON DIOXIDE,CO2 18 mmol/L (21-32); CHLORIDE,CL 99 mmol/L (100-110); ESTIMATED GFR 23 mL/min (>60); GLUCOSE RANDOM 245 mg/dL (80-116); MAGNESIUM 2.8 mg/dL (1.8-2.5); POTASSIUM,K 3.2 mmol/L (3.5-5.3); PROTEIN TOTAL,TP 8.4 g/dL (6.0-8.0); SODIUM,NA 134 mmol/L (135-145)
[2023-08-27 19:50] LABS: C-REACTIVE PROTEIN 0.81 mg/dL (<0.50)
[2023-08-27 19:51] LABS: CREATININE 2.1 mg/dL (0.55-1.02)
[2023-08-27 19:52] LABS: TROPONIN I 227.9 pg/mL (4.0-60.3)
[2023-08-27 20:07] LABS: INFLUENZA A NAA NEGATIVE (NEGATIVE); INFLUENZA B NAA NEGATIVE (NEGATIVE); RESPIRATORY SYNCYTIAL VIR NAA NEGATIVE (NEGATIVE)
[2023-08-27 20:07] LABS: BILIRUBIN,URINE SMALL (NEGATIVE); GLUCOSE,URINE NORMAL (NORMAL); KETONES,URINE NEGATIVE (NEGATIVE); LEUKOCYTE ESTERASE,URINE NEGATIVE (NEGATIVE); NITRITE,URINE NEGATIVE (NEGATIVE); OCCULT BLOOD,URINE MODERATE (NEGATIVE); PROTEIN,URINE 30 mg/dL (NEGATIVE); UROBILINOGEN,URINE NORMAL (NEGATIVE)
[2023-08-27 20:14] LABS: APPEARANCE,URINE SLIGHTLY CLOUDY (CLEAR); BACTERIA,URINE FEW (NS); COARSE GRANULAR CASTS,URINE FEW (NS); COLOR,URINE YELLOW (YELLOW); RBC,URINE 0-5 (0-5); SQUAMOUS EPITHELIAL CELLS,UR FEW (NS,R,O); WBC,URINE 0-5 (0-5)
[2023-08-27 20:15] LABS: CORONAVIRUS COVID-19 NAA POSITIVE (NEGATIVE)
[2023-08-27] MEDS: Sodium Chloride 0.9% 1,000 ML IV SCH (20:37)
[2023-08-27] MEDS: Heparin Sodium 5,000 Units/ML Vial IVPUSH ONE (22:00)
[2023-08-27] MEDS: Diltiazem 25 MG/5 ML SDV IVPUSH ONE (22:01)
[2023-08-27] MEDS: Aspirin 81 MG Tab.Chew PO ONE (22:01)
[2023-08-27] MEDS: Heparin Sodium/0.45% NaCl 500 ML IV SCH (22:21)
[2023-08-27 22:26] LABS: INR 1.08 (1.00-1.24); PROTHROMBIN TIME 11.1 sec (9.0-11.1); PTT,PARTIAL THROMBOPLSTIN TIME 27.5 SECONDS (24.4-33.2)
== END 2023-08-27 22:56 ==
LOC: FB.ED 18:48
DX: U07.1 COVID-19 (principal); I21.4 Non-ST elevation (NSTEMI) myocardial infarction; I48.91 Unspecified atrial fibrillation; M54.6 Pain in thoracic spine; N17.9 Acute kidney failure, unspecified; E86.0 Dehydration; R10.84 Generalized abdominal pain; I10 Essential (primary) hypertension; Z90.49 Acquired absence of other specified parts of digestive tract; Z90.710 Acquired absence of both cervix and uterus; Z87.891 Personal history of nicotine dependence; Z79.82 Long term (current) use of aspirin; Z79.899 Other long term (current) drug therapy; Z88.0 Allergy status to penicillin
CPT/HCPCS: 0241U; 36415; 71045; 80053; 81001; 83735; 83880; 84484; 85025; 85610; 85730; 86140; 87086; 87088; 87186; 93005; 93010; 96361; 96365; 96375; 99285; 99285-25; A9270-GY; J1644; J3490; J7030; J7040

== ENCOUNTER 2024-03-27 18:22 | Emergency (ER) | payer MEDICARE ==
[2024-03-27] MEDS ORDERED: Acetaminophen/HYDROcodone 325-5 MG Tab PO ONE (18:23)
[2024-03-27 18:46] LABS: BASOPHILS ABSOLUTE AUTO 0.1 x10-3/uL (0.0-0.1); BASOPHILS PERCENT AUTO 0.5 % (0.2-1.5); BLOOD UREA NITROGEN,BUN 25 mg/dL (7-18); BUN/CREATININE RATIO 17.9 (9-20); CARBON DIOXIDE,CO2 26 mmol/L (21-32); CHLORIDE,CL 104 mmol/L (100-110); CREATININE 1.4 mg/dL (0.55-1.02); EOSINOPHILS ABSOLUTE AUTO 0.1 x10-3/uL (0.0-0.8); EOSINOPHILS PERCENT AUTO 0.5 % (0.6-8.1); ESTIMATED GFR 38 mL/min (>60); GLUCOSE RANDOM 60 mg/dL (80-116); HEMATOCRIT 36.6 % (34.2-48.2); HEMOGLOBIN 11.8 g/dL (11.4-15.5); LYMPHOCYTES ABSOLUTE AUTO 3.2 x10-3/uL (1.0-4.4); LYMPHOCYTES PERCENT AUTO 27.9 % (18.4-52.1); MEAN CORPUSCULAR HEMOGLOBIN 30.6 pg (23.9-33.9); MEAN CORPUSCULAR HGB CONC 32.3 g/dL (31.9-34.8); MEAN CORPUSCULAR VOLUME 94.8 fL (76.7-100.5); MEAN PLATELET VOLUME 8.7 fL (7.1-12.4); MONOCYTES ABSOLUTE AUTO 1.4 x10-3/uL (0.3-1.0); MONOCYTES PERCENT AUTO 11.7 % (4.4-15.7); NEUTROPHILS ABSOLUTE AUTO 6.9 x10-3/uL (1.5-6.3); NEUTROPHILS PERCENT AUTO 59.4 % (30.8-76.2); PLATELET COUNT,PLT 241 x10(3)uL (151-488); POTASSIUM,K 3.4 mmol/L (3.5-5.3); RED BLOOD CELL COUNT 3.87 x10(6)uL (3.60-5.20); RED CELL DISTRIBUTION WIDTH 15.2 % (12.3-16.5); SODIUM,NA 139 mmol/L (135-145); WHITE BLOOD CELL COUNT,WBC 11.6 x10-3/uL (3.0-10.3)
[2024-03-27 18:52] LABS: A/G RATIO 0.5; ALANINE AMINOTRANSFERASE,ALT 18 U/L (12-36); ALBUMIN 2.9 g/dL (3.2-4.6); ALKALINE PHOSPHATASE 64 IU/L (56-112); ASPARTATE AMNIOTRANSFERASE,AST 22 IU/L (5-25); BILIRUBIN TOTAL 0.3 mg/dL (0.1-1.3); PROTEIN TOTAL,TP 8.6 g/dL (6.0-8.0)
[2024-03-27 18:53] LABS: INR 1.01 (1.00-1.24); PROTHROMBIN TIME 10.5 sec (9.0-11.1); PTT,PARTIAL THROMBOPLSTIN TIME 27.3 SECONDS (24.4-33.2)
== END 2024-03-27 21:15 | disposition home or self-care (01) ==
LOC: FB.ED 18:22
DX: S22.059A Unspecified fracture of T5-T6 vertebra, initial encounter for closed fracture (principal); I10 Essential (primary) hypertension; Z79.899 Other long term (current) drug therapy; Z79.82 Long term (current) use of aspirin; Z88.0 Allergy status to penicillin; W19.XXXA Unspecified fall, initial encounter
CPT/HCPCS: 70450; 70486; 72125; 72128; 73562-RT; 80053; 85025; 85610; 85730; 99283; 99284; A9270-GY

== ENCOUNTER 2024-05-16 15:40 | Emergency (ER) | payer MEDICARE ==
[2024-05-16] MEDS ORDERED: Sodium Chloride 0.9% 10 ML Syringe FLUSH PRN (15:42)
[2024-05-16 15:56] LABS: BASOPHILS ABSOLUTE AUTO 0.1 x10-3/uL (0.0-0.1); BASOPHILS PERCENT AUTO 0.8 % (0.2-1.5); EOSINOPHILS ABSOLUTE AUTO 0.2 x10-3/uL (0.0-0.8); HEMATOCRIT 35.4 % (34.2-48.2); LYMPHOCYTES ABSOLUTE AUTO 2.1 x10-3/uL (1.0-4.4); LYMPHOCYTES PERCENT AUTO 30.2 % (18.4-52.1); MEAN CORPUSCULAR HEMOGLOBIN 32.4 pg (23.9-33.9); MEAN CORPUSCULAR HGB CONC 33.9 g/dL (31.9-34.8); MEAN CORPUSCULAR VOLUME 95.7 fL (76.7-100.5); MEAN PLATELET VOLUME 8.3 fL (7.1-12.4); MONOCYTES ABSOLUTE AUTO 0.8 x10-3/uL (0.3-1.0); MONOCYTES PERCENT AUTO 11.2 % (4.4-15.7); NEUTROPHILS ABSOLUTE AUTO 3.8 x10-3/uL (1.5-6.3); NEUTROPHILS PERCENT AUTO 54.8 % (30.8-76.2); PLATELET COUNT,PLT 216 x10(3)uL (151-488); RED CELL DISTRIBUTION WIDTH 15.7 % (12.3-16.5)
[2024-05-16 16:04] LABS: BLOOD UREA NITROGEN,BUN 24 mg/dL (7-18); BUN/CREATININE RATIO 14.1 (9-20); CALCIUM 9.5 mg/dL (8.6-10.2); CARBON DIOXIDE,CO2 22 mmol/L (21-32); CHLORIDE,CL 108 mmol/L (100-110); CREATININE 1.7 mg/dL (0.55-1.02); ESTIMATED GFR 30 mL/min (>60); GLUCOSE RANDOM 92 mg/dL (80-116); POTASSIUM,K 3.3 mmol/L (3.5-5.3); SODIUM,NA 141 mmol/L (135-145)
[2024-05-16 16:06] LABS: INR 1.03 (1.00-1.24); PROTHROMBIN TIME 10.7 sec (9.0-11.1); PTT,PARTIAL THROMBOPLSTIN TIME 30.3 SECONDS (24.4-33.2)
[2024-05-16 16:10] LABS: A/G RATIO 0.6; ALANINE AMINOTRANSFERASE,ALT 23 U/L (12-36); ALBUMIN 3.3 g/dL (3.2-4.6); ALKALINE PHOSPHATASE 73 IU/L (56-112); ASPARTATE AMNIOTRANSFERASE,AST 23 IU/L (5-25); BILIRUBIN TOTAL 0.4 mg/dL (0.1-1.3); PROTEIN TOTAL,TP 8.5 g/dL (6.0-8.0)
[2024-05-16] MEDS ORDERED: Potassium Chloride 20 MEQ Tab.ER PO ONE (17:33)
== END 2024-05-16 18:35 | disposition home or self-care (01) ==
LOC: FB.ED 15:40
DX: S01.01XA Laceration without foreign body of scalp, initial encounter (principal); E87.6 Hypokalemia; Z79.01 Long term (current) use of anticoagulants; Z95.4 Presence of other heart-valve replacement; Z88.0 Allergy status to penicillin; Z79.82 Long term (current) use of aspirin; Z79.899 Other long term (current) drug therapy; W19.XXXA Unspecified fall, initial encounter
CPT/HCPCS: 12001; 70450; 72125; 80053; 85025; 85610; 85730; 99284

== ENCOUNTER 2025-02-19 09:05 | Inpatient (IN) | payer MEDICARE ==
[2025-02-19] MEDS ORDERED: Triamcinolone Acetonide 0.1% Dental Paste 5 GM Tube DENT PRN (13:46)
[2025-02-19] MEDS ORDERED: Carboxymethylcellulose Sodium 0.5% Ophth Soln 15 ML Bottle EYEBOTH PRN (14:09)
[2025-02-19] MEDS: Ondansetron 4 MG Tab.DIS PO PRN (16:04)
[2025-02-19] MEDS: Sennosides/Docusate Sodium 50-8.6 MG Tab PO SCH (20:50)
[2025-02-20] MEDS: Venlafaxine 75 MG Cap.ER PO SCH (08:24)
[2025-02-20] MEDS: Potassium Chloride 20 MEQ Tab.ER PO SCH (08:25)
[2025-02-20] MEDS: Cholecalciferol (Vitamin D3) 25 MCG Tab PO SCH (12:01)
[2025-03-02] MEDS: Acetaminophen/HYDROcodone 325-5 MG Tab PO PRN (20:18)
[2025-03-03] MEDS: Menthol 10%/Methyl Salicylate 30% 85 GM Tube TOP PRN (03:12)
== END 2025-03-06 11:25 | disposition home health service (06) | DRG 948 ==
LOC: FB.MS 12:20
PROVIDERS: ADMIT Family Medicine; ATTEND Internal Medicine
DX: R53.81 Other malaise (principal); Z68.45 Body mass index [BMI] 70 or greater, adult; I48.91 Unspecified atrial fibrillation; G62.9 Polyneuropathy, unspecified; K21.9 Gastro-esophageal reflux disease without esophagitis; I12.9 Hypertensive chronic kidney disease with stage 1 through stage 4 chronic kidney disease, or unspecified chronic kidney disease; M79.7 Fibromyalgia; F41.9 Anxiety disorder, unspecified; G43.909 Migraine, unspecified, not intractable, without status migrainosus; G47.33 Obstructive sleep apnea (adult) (pediatric); E66.811 Obesity, class 1; M35.3 Polymyalgia rheumatica; F32.9 Major depressive disorder, single episode, unspecified; M06.9 Rheumatoid arthritis, unspecified; N18.32 Chronic kidney disease, stage 3b; E87.6 Hypokalemia; I25.2 Old myocardial infarction; M54.9 Dorsalgia, unspecified; G89.29 Other chronic pain; D64.9 Anemia, unspecified; Z96.649 Presence of unspecified artificial hip joint; Z96.659 Presence of unspecified artificial knee joint; Z98.890 Other specified postprocedural states; Z85.3 Personal history of malignant neoplasm of breast; Z88.0 Allergy status to penicillin; Z79.01 Long term (current) use of anticoagulants; Z79.899 Other long term (current) drug therapy; Z95.0 Presence of cardiac pacemaker; Z87.891 Personal history of nicotine dependence
CPT/HCPCS: 93005; 94150; 97110-GP; 97116-GP; 97161-GP; 97165-GO; 97530-GO; 97530-GP; 97535-GO; 99305; 99315; A9270-GY; Q0162